=== PATIENT | female | born 1970 | race Caucasian/White ===

== ENCOUNTER 2016-12-26 18:41 | Emergency (ER) | payer OTHER ==
[2016-12-26 19:56] VITALS: BP 130/78
[2016-12-26] MEDS ORDERED: Amoxicillin/Clavulanate TAB* 875 MG PO ONE (20:03)
--- NOTE | 2016-12-26 20:05 | UC ---
Respiratory Complaint HPI - HPI Summary HPI Summary: Patient has had 2 weeks of allergy like symptoms which have gotten progressively worse the last three days, productive cough, pain around the eyes , fatigue and ear pain - History of Current Complaint Chief Complaint: UCRespiratory Stated Complaint: UPPER RESPIRATORY COMPLAINT Time Seen by Provider: 12/26/16 19:42 Hx Obtained From: Patient Hx Last Menstrual Period: 11/25/16 Onset/Duration: Sudden Onset, Lasting Weeks Timing: Constant Severity Initially: Mild Severity Currently: Moderate Aggravating Factors: Allergens, Exertion, Deep Breaths Alleviating Factors: Nothing Associated Signs And Symptoms: Positive: Wheezing, URI, Nasal Congestion, Sinus Discomfort - Allergies/Home Medications Allergies/Adverse Reactions: Allergies Allergy/AdvReac Type Severity Reaction Status Date / Time Sulfa Antibiotics Allergy Intermediate Rash Verified 12/26/16 19:56 Home Medications: Home Medications Albuterol HFA INHALER* [Ventolin HFA Inhaler*] 2 puff INH Q6H PRN 12/26/16 [ History Confirmed 12/26/16] PMH/Surg Hx/FS Hx/Imm Hx Previously Healthy: Yes - Surgical History Surgical History: Yes Surgery Procedure, Year, and Place: sinus surgery x2, ulnar surgery, tonsillectomy, gallbladder removed. URETHRAL DILITATION - Family History Known Family History: Negative: Cardiac Disease, Hypertension - Social History Occupation: Employed Full-time Alcohol Use: None Substance Use Type: None Smoking Status (MU): Never Smoked Tobacco Review of Systems Constitutional: Fatigue Skin: Negative Eyes: Negative ENT: Sore Throat, Ear Ache, Nasal Discharge, Sinus Congestion, Sinus Pain/ Tenderness Respiratory: Shortness Of Breath, Cough Cardiovascular: Negative Gastrointestinal: Negative Genitourinary: Negative Motor: Negative Neurovascular: Negative Musculoskeletal: Negative Neurological: Headache Psychological: Negative Is Patient Immunocompromised?: No All Other Systems Reviewed And Are Negative: Yes Physical Exam Triage Information Reviewed: Yes Appearance: Well-Nourished, Ill-Appearing, Pain Distress Vital Signs: Initial Vital Signs Temp 98.2 F 12/26/16 19:54 Pulse 99 12/26/16 19:54 Resp 16 12/26/16 19:54 BP 130/78 12/26/16 19:54 Pulse Ox 98 12/26/16 19:54 Vital Signs Reviewed: Yes Eye Exam: Normal ENT: Positive: Pharyngeal erythema, TMs normal, TM bulging, TM dull Dental Exam: Normal Neck exam: Normal Neck: Positive: Supple, Nontender, No Lymphadenopathy Respiratory: Positive: Chest non-tender, Normal breath sounds, Respiratory distress - mild, Wheezing, Expiration, Inspiration Cardiovascular Exam: Normal Abdominal Exam: Normal Musculoskeletal Exam: Normal Neurological Exam: Normal Psychological Exam: Normal Skin Exam: Normal UC Diagnostic Evaluation - Laboratory O2 Sat by Pulse Oximetry: 98 Respiratory Course/Dx - Course Course Of Treatment: hx obtained, exam performed ,meds reviewed, treated for sinusitis and wheezing - Differential Dx/Diagnosis Differential Diagnosis/HQI/PQRI: Asthma, Bronchitis, Laryngitis, Sinusitis Provider Diagnoses: sinusitis. wheezing Discharge - Discharge Plan Condition: Stable Disposition: HOME Patient Education Materials: Sinusitis (ED) Additional Instructions: 1. take the medication as prescribed. 2. Increase your fluid intake and get plenty of rest 3. follow up with any worsening symptoms
== END 2016-12-26 20:13 | disposition home or self-care (01) ==
LOC: UCCORT 18:41
DX: J32.9 Chronic sinusitis, unspecified (principal); R06.2 Wheezing; R53.83 Other fatigue; Z88.2 Allergy status to sulfonamides
CPT/HCPCS: 99212; A9270-GY; G0463

== ENCOUNTER 2019-04-19 16:25 | Emergency (ER) | payer OTHER ==
--- OUTSIDE RECORDS SUMMARY | 2019-04-19 16:33 | XMS REPORT | Summary of Care ---
:1970 Author Organization [facility] Address [address] [place] [address] Care Team Providers Name Role Phone Maite Wilson MD Primary Care Provider Reason for Referral Procedure/Treatment (Routine) Status Reason Specialty Diagnoses / Procedures Referred By Contact Referred To Contact Open Diagnoses Cough Pft [facility] Procedures Spirometry with bronchodilator [address] [place] [id number] Encounter Details Date Type Department Care Team Description 03/26/2019 Procedure visit Pulmonary Function [facility], Cough (Primary Dx); Testing [facility] Elena, ACE SOB (shortness of breath) [facility] [address] [phone] Allergies Active Allergy Reactions Severity Noted Date Comments Sulfa Antibiotics Hives, Rash Low documented as of this encounter (statuses as of 03/26/2019) Medications Medication Sig Dispensed Refills Start Date End Date Status ibuprofen (ADVIL,MOTRIN) Take 800 mg by 0 Active 800 MG tablet mouth Two Times Daily. fluticasone (FLONASE) 50 2 sprays by Nasal 0 Active MCG/ACT nasal spray route daily. pantoprazole (PROTONIX) Take 40 mg by 0 Active 40 MG tablet mouth daily. cetirizine (ZYRTEC) 10 Take 10 mg by 0 Active MG tablet mouth as needed cyclobenzaprine Take 10 mg by 0 07/07/2016 Active (FLEXERIL) 10 MG tablet mouth as needed metroNIDAZOLE (FLAGYL) Take 250 mg by 0 Active 250 MG tablet mouth Three times daily Probiotic Product Take by mouth 0 Active (PROBIOTIC-10 PO) acyclovir (ZOVIRAX) 400 Take 400 mg by 0 03/30/2017 Active MG tablet mouth as needed VENTOLIN HFA 108 (90 0 04/18/2017 Active Base) MCG/ACT inhaler Estradiol 10 MCG TABS insert 1 tablet 0 04/21/2017 Active vaginally two times a week MUCINEX 600 MG 12 hr Take 600 mg by 0 04/20/2017 Active tablet mouth as needed aspirin 81 MG tablet Take 81 mg by 0 Active mouth daily PULMICORT FLEXHALER 90 INHALE 2 0 02/07/2018 Active MCG/ACT inhaler INHALATIONS TWICE A DAY benzonatate (TESSALON) Take 1 capsule by 0 08/18/2017 Active 100 MG capsule mouth as needed montelukast (SINGULAIR) Take 1 tablet by 0 08/11/2017 Active 10 MG tablet mouth Daily trimethoprim-polymyxin b Place 1 drop into 0 08/25/2017 Active (POLYTRIM) ophthalmic both eyes daily solution polycarbophil (FIBERCON) Take 625 mg by 0 Active 625 MG tablet mouth daily crhuebo-uokoegcmpclnk-fm Take 1 tablet by 0 Active ffeine (EXCEDRIN mouth every 6 MIGRAINE) 250-250-65 MG (six) hours as per tablet needed for Pain UNABLE TO FIND CBD oil- BID 0 Active Magnesium Oxide (MAG-OX) Take 400 mg by 0 Active 400 (241.3 Mg) MG tablet mouth daily hydroxychloroquine Take 1 tablet by 60 tablet 11 12/18/2018 Active (PLAQUENIL) 200 MG mouth Two Times 0 tablet Daily documented as of this encounter (statuses as of 03/26/2019) Active Problems Problem Noted Date SOB (shortness of breath) 03/26/2019 Chronic right shoulder pain 04/06/2018 Family history of malignant melanoma 04/25/2017 Bilateral breast cysts 05/12/2016 Fibrocystic breast changes of both breasts 05/12/2016 Pulmonary nodules 10/19/2015 Abnormal ultrasound of breast 04/29/2015 Sjogren's syndrome 12/31/2014 Connective tissue disease, undifferentiated 12/25/2013 Family history of uterine cancer 12/12/2013 Family history of ovarian cancer 12/12/2013 Mastodynia 08/02/2013 Breast mass, left 04/25/2013 Other (abnormal) findings on radiological examination of breast 04/25/2013 Screening mammogram, encounter for 04/25/2013 Fatigue 10/31/2012 Fibromyalgia Hiatal hernia Pleural nodule Liver lesion documented as of this encounter (statuses as of 03/26/2019) Resolved Problems Problem Noted Date Resolved Date Hemorrhoids 11/22/2014 03/31/2017 documented as of this encounter (statuses as of 03/26/2019) Social History Tobacco Use Types Packs/Day Years Used Date Never Smoker Smokeless Tobacco: Never Used Alcohol Use Drinks/Week oz/Week Comments Yes socially once a month Sex Assigned at Date Recorded Not on file Job Start Date Occupation Industry Not on file Not on file Not on file Travel History Travel Start Travel End No recent travel history available. documented as of this encounter Last Filed Vital Signs Not on filedocumented in this encounter Plan of Treatment Date Type Specialty Care Team Description 03/26/2019 Office Visit Pulmonology Boogie Fischer MD PhD Arrived [address] [facility] 2nd Floor [address] [place] [phone] 06/18/2019 Office Visit Rheumatology Mesfin Cuevas MD [address] [facility] 2nd [place] [address] [phone] 12/11/2019 Appointment Radiology 12/11/2019 Office Visit Breast Surgery Preeti Fletcher, HOSTESS [address] [facility] [place] [address] [place] [address] [phone] Name Type Priority Associated Diagnoses Order Schedule Spirometry with bronchodilator PFT Routine Cough Ordered: 03/26/2019 Health Maintenance Due Date Last Done Comments MMR Vaccines (1 of 1 - 1970 Standard series) Varicella Vaccines (1 of 2 1970 - 2-dose childhood series) DTaP,Tdap,and Td Vaccines 01/30/1976 (1 - Tdap) Cervical Cancer Screening 5 1990 years Influenza Vaccine 01/02/2019 Breast Cancer Screening 2 12/05/2020 12/05/2018, 09/08/2018, years 12/01/2017, Additional history exists Colon Cancer Screening 10 09/08/2026 09/08/2016 yrs Pneumococcal Vaccine: 65+ 2034 Years (1 of 2 - PCV13) HIV Screening Completed 01/19/2016 HIB Vaccines Aged Out No longer eligible based on patient's age to complete this topic Hepatitis A Vaccines Aged Out No longer eligible based on patient's age to complete this topic Hepatitis B Vaccines Aged Out No longer eligible based on patient's age to complete this topic IPV Vaccines Aged Out No longer eligible based on patient's age to complete this topic Pneumococcal Vaccine: Aged Out No longer eligible Pediatrics (0 to 5 Years) based on patient's age and At-Risk Patients (6 to to complete this topic 64 Years) documented as of this encounter Implants Implanted Type Area Wrist Liner Device Shelf Model / Identifier Expiration Date Serial / Lot Sling Single Incision Altis. - [id number] N/A: Urethra COLOPLAST 2018 [id number] / Implanted: Qty: 1 on 06/17/2016 by Go Horn MD at OR / [id number] documented as of this encounter Results Not on filedocumented in this encounter Visit Diagnoses Diagnosis Cough - Primary SOB (shortness of breath) Shortness of breath documented in this encounter Administered Medications Medication Order MAR Action Action Date Dose Rate Site albuterol (PROVENTIL) Given 03/26/2019 12:47 PM EST 2.5 mg Inhaled nebulizer solution 2.5 mg 2.5 mg, Nebulization, Once, 03/26/19 at 1245, For 1 dose documented in this encounter
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
[2019-04-19 16:46] VITALS: BP 128/76
--- NOTE | 2019-04-19 16:49 | UC ---
Skin Complaint HPI - HPI Summary HPI Summary: 49 yo female presents with two complaints. 1) For the last 3-4 months she has noticed a skin colored growth on the inside of her right nostril. States that this enlarges and shrinks in a waxing and waning fashion. Is sometimes tender to touch. She has a history of nasal polyps and wonders if this is a polyp. She sees an ENT in [place], but has not contacted them about this. 2) Also complains of a ?abscess on right medial thigh. States a few weeks ago was large, red, and tender but resolved without treatment. Since that time has noticed a small pinkish colored skin-tag like growth at the site. This is sometimes tender to touch. No warmth, drainage, fevers, or personal hx of MRSA. - History of Current Complaint Chief Complaint: UCSkin Time Seen by Provider: 04/19/19 16:49 Stated Complaint: ABCESS ON LEG, CONGESTION Hx Obtained From: Patient Hx Last Menstrual Period: 11/25/16 Onset/Duration: Gradual Onset Onset Severity: Mild Current Severity: Mild Pain Intensity: 1 - Allergy/Home Medications Allergies/Adverse Reactions: Allergies Allergy/AdvReac Type Severity Reaction Status Date / Time Sulfa (Sulfonamide Allergy Rash Verified 04/19/19 16:35 Antibiotics) Home Medications: Home Medications Aspirin/Acetaminophen/Caffeine [Excedrin Migraine Caplet] 1 each PO ONCE [History Confirmed 04/19/19] Ibuprofen TAB* [Motrin TAB* 600 MG] 600 mg PO Q6H PRN 04/19/19 [History Confirmed 04/19/19] Turmeric 400 mg PO DAILY 04/19/19 [History Confirmed 04/19/19] PMH/Surg Hx/FS Hx/Imm Hx - Additional Past Medical History Additional PMH: Nasal polyps - Surgical History Surgical History: Yes Surgery Procedure, Year, and Place: sinus surgery x2, ulnar surgery, tonsillectomy, gallbladder removed. URETHRAL DILITATION - Family History Known Family History: Negative: Cardiac Disease, Hypertension - Social History Lives: With Family Alcohol Use: None Substance Use Type: None Smoking Status (MU): Never Smoked Tobacco Review of Systems All Other Systems Reviewed And Are Negative: No Constitutional: Positive: Negative Skin: Positive: Other - ?abscess Eyes: Positive: Negative ENT: Positive: Other - ?nasal polyp Respiratory: Positive: Negative Cardiovascular: Positive: Negative Neurological: Positive: Negative Psychological: Positive: Negative Physical Exam - Summary Physical Exam Summary: GENERAL: NAD. WDWN. No pain distress. SKIN: RIGHT medial proxmal thigh with 3mm pinkish colored skin growth that is nttp. No erythema, edema, induration, streaking, drainage, ulceration, pustule, or umbilication. HEENT: Head: AT/NC Eyes: EOM intact. Conjunctiva clear without inflammation or discharge. Ears: Hearing grossly normal. TMs intact, no bulging, erythema, or edema. Nose: Nasal mucosa pink and moist. NTTP maxillary and frontal sinus. RIGHT nostril lateral aspect with 3mm flesh-colored growth that is mildly ttp. No pustule, abscess, or erythema. Throat: Posterior oropharynx without exudates, erythema, or tonsillar enlargement. Uvula midline. NECK: Supple. Nontender. No lymphadenopathy. CHEST: CTAB. No r/r/w. No accessory muscle use. Breathing comfortably and in no distress. CV: RRR. Pulses intact. Cap refill <2seconds NEURO: Alert. PSYCH: Age appropriate behavior. Triage Information Reviewed: Yes Vital Signs: Initial Vital Signs Temp 98.5 F 04/19/19 16:38 Pulse 61 04/19/19 16:38 Resp 18 04/19/19 16:38 BP 128/76 04/19/19 16:38 Pulse Ox 100 04/19/19 16:38 Vital Signs Reviewed: Yes Course/Dx - Course Course Of Treatment: 1) Possible nasal polyp - advised to contact her ENT for further eval 2) Thigh with possible residual sac from abscess/cyst or ?skin tag. Advised to f /u with dermatology - Diagnoses Provider Diagnosis: Nasal polyp, Skin tag Discharge ED - Sign-Out/Discharge Documenting (check all that apply): Patient Departure All imaging exams completed and their final reports reviewed: No Studies - Discharge Plan Condition: Stable Disposition: HOME Prescriptions: Mupirocin 2% OINT* [Bactroban 2 % Oint*] 1 applic TOPICAL BID #1 tube Patient Education Materials: Abscess (ED), Nasal Polyps (ED) Referrals: Maite Wilson MD [Primary Care Provider] - Mariela Ocampo [Medical Doctor] - As Soon As Possible Additional Instructions: If you develop a fever, shortness of breath, chest pain, new or worsening symptoms - please call your PCP or go to the ED immediately. 1) The area in your nose appears to be a skin growth - perhaps a nasal polyp. Please see your ENT doctor for further evaluation and treatment of this. 2) The area on your leg appears that it may be a residual cyst-like sac from an abscess. This is not currently infected. It may need to be removed if it returns or continues to be bothersome -- I recommend you schedule an appointment with a geosciences associate professor to have this looked at. - Billing Disposition and Condition Condition: STABLE Disposition: Home
== END 2019-04-19 17:05 | disposition home or self-care (01) ==
LOC: UCEAST 16:25
DX: J33.9 Nasal polyp, unspecified (principal); L91.8 Other hypertrophic disorders of the skin; Z79.82 Long term (current) use of aspirin; Z88.2 Allergy status to sulfonamides
CPT/HCPCS: 99212; G0463